=== PATIENT | female | born 1990 | race Two or more races ===

== ENCOUNTER 2018-07-27 19:10 | Emergency (ER) | payer OTHER ==
[~2018-07-27] VITALS: Ht 167.6 cm; Wt 149.7 kg
== END 2018-07-27 21:08 | disposition home or self-care (01) ==
LOC: ER 19:10
DX: B34.9 Viral infection, unspecified (principal)

== ENCOUNTER 2018-08-28 11:46 | Emergency (ER) | payer OTHER ==
[~2018-08-28] VITALS: Ht 167.6 cm; Wt 147.0 kg
== END 2018-08-28 14:11 | disposition home or self-care (01) ==
LOC: ER 11:46
DX: L23.6 Allergic contact dermatitis due to food in contact with the skin (principal)

== ENCOUNTER 2020-08-19 20:27 | Emergency (ER) | payer OTHER ==
[~2020-08-19] VITALS: Ht 167.6 cm; Wt 145.1 kg
== END 2020-08-19 23:54 | disposition home or self-care (01) ==
LOC: ER 20:27
DX: R11.11 Vomiting without nausea (principal); R42 Dizziness and giddiness; T50.Z95A Adverse effect of other vaccines and biological substances, initial encounter

== ENCOUNTER 2024-06-10 09:06 | Emergency (ER) | payer OTHER ==
[~2024-06-10] VITALS: Ht 167.6 cm; Wt 135.6 kg
[2024-06-10 11:02] LABS: HEMATOCRIT 32.5 % (36.0-45.00); HEMOGLOBIN 11.8 g/dL (12.0-15.00); MEAN CELL VOLUME 85.5 fL (80.00-100.00); MEAN CORPUSCULAR HEMOGLOBIN 31.1 pg (27.00-32.0); MEAN CORPUSCULAR HGB CONC 36.4 g/dl (32.0-36.0); PLATELET COUNT 257 K/uL (150-450); RED CELL DISTRIBUTION WIDTH 13.4 % (11.5-14.5)
[2024-06-10 11:25] LABS: URINE APPEARANCE Cloudy; URINE BILIRRUBIN Negative (NEGATIVE); URINE BLOOD Negative; URINE COLOR Yellow; URINE GLUCOSE Negative (NEGATIVE); URINE KETONE Negative (NEGATIVE); URINE LEUKOCYTE Negative; URINE NITRATE Positive; URINE PROTEIN Negative (NEGATIVE)
[2024-06-10 11:29] LABS: URINE EPITHELIAL CELLS 68.5 uL (0.0-38.8); URINE RBC 39.7 uL (0.0-20.8); URINE WBC 38.4 uL (0.0-23.2)
[2024-06-10 11:34] LABS: URINE BACTERIA > 9821.5 uL (0.0-1933)
== END 2024-06-10 14:25 | disposition home or self-care (01) ==
LOC: ER 09:08
PROVIDERS: Emergency Medicine
DX: N83.202 Unspecified ovarian cyst, left side (principal); N83.201 Unspecified ovarian cyst, right side; Z88.8 Allergy status to other drugs, medicaments and biological substances

== ENCOUNTER 2024-08-28 16:32 | Inpatient (IN) | payer OTHER ==
[~2024-08-28] VITALS: Ht 172.7 cm; Wt 95.3 kg
--- NOTE | 2024-08-28 17:35 | NUR ---
PTE ALERTA Y ORIENTADA X3 REFIERE DOLOR PELVICO DESDE HACE 5 ABDALLA. SE MIDEN S/V Y SE UBICA.
[2024-08-28 18:09] LABS: HEMATOCRIT 36.3 % (36.0-45.00); HEMOGLOBIN 12.2 g/dL (12.0-15.00); MEAN CELL VOLUME 87.2 fL (80.00-100.00); MEAN CORPUSCULAR HEMOGLOBIN 29.3 pg (27.00-32.0); MEAN CORPUSCULAR HGB CONC 33.6 g/dl (32.0-36.0); PLATELET COUNT 307 K/uL (150-450); RED BLOOD COUNT 4.16 M/uL (4.00-6.00); RED CELL DISTRIBUTION WIDTH 13.3 % (11.5-14.5)
--- NOTE | 2024-08-28 18:09 | NUR ---
PTE ALERTA Y ORINTADA X3 SE ORIENTA SOBRE TRATAMIENTO MEDICO Y SE SARAI MUSTRAS DE MARKOS BAJO MEDIDAS ASPTICAS ADECUDAS
[2024-08-28 18:23] LABS: PH,URINE 6.5 (5.0-8.0); URINE APPEARANCE Clear; URINE BILIRRUBIN Negative (NEGATIVE); URINE BLOOD Negative; URINE COLOR Yellow; URINE GLUCOSE Negative (NEGATIVE); URINE KETONE Negative (NEGATIVE); URINE LEUKOCYTE Trace; URINE NITRATE Negative; URINE PROTEIN Negative (NEGATIVE)
[2024-08-28 18:24] LABS: URINE BACTERIA 135.8 uL (0.0-1933); URINE EPITHELIAL CELLS 35.1 uL (0.0-38.8); URINE RBC 10.4 uL (0.0-20.8); URINE WBC 1.8 uL (0.0-23.2)
[2024-08-28 18:41] LABS: ALBUMIN 3.4 gm/dL (3.4-5.0); BILIRUBIN TOTAL 0.13 mg/dL (0.3-1.2); CALCIUM 9.3 mg/dL (8.5-10.1); CREATININE SERUM 0.63 mg/dL (0.55-1.02); GFR 108.17; GLOBULINA 4.1 G/DL (2.4-3.5); POTASSIUM 4.56 mEq/L (3.5-5.1); TOTAL PROTEIN 7.5 gm/dL (6.4-8.2)
[2024-08-28 18:53] LABS: URINE CAST 0.29 uL (0.0-1.40)
[2024-08-28] MEDS ORDERED: CEFTRIAXONE SODIUM 2,000 MG VIAL IV STA (23:05)
[2024-08-28] MEDS ORDERED: FAMOTIDINE/PF 20 MG in 0.9 % SODIUM CHLORIDE 8 ML IV PUSH SCH (23:28)
[2024-08-28] MEDS ORDERED: DOXYCYCLINE HYCLATE 100MG IV SCH (23:28)
[2024-08-28] MEDS ORDERED: MORPHINE SULFATE 4 MG/ML CARTRIDGE IV PRN (23:30)
[2024-08-28] MEDS ORDERED: ACETAMINOPHEN 500 MG GEL..CAP PO PRN (23:30)
[2024-08-28] MEDS ORDERED: 0.9 % SODIUM CHLORIDE 1,000 ML IV SCH (23:30)
[2024-08-28] MEDS ORDERED: KETOROLAC TROMETHAMINE 15 MG VIAL IU ONE (23:30)
[2024-08-29] MEDS ORDERED: FAMOTIDINE/PF 20 MG/2 ML VIAL ONE ×2 (00:53→05:07)
[2024-08-29] MEDS ORDERED: KETOROLAC TROMETHAMINE 30 MG VIAL ONE (00:53)
[2024-08-29] MEDS ORDERED: CEFTRIAXONE SODIUM 2,000 MG VIAL ONE (00:53)
[2024-08-29] MEDS ORDERED: METRONIDAZOLE/SODIUM CHLORIDE 100 ML IV SCH (01:00)
[2024-08-29 02:59] LABS: INR 0.96; PARTIAL THROMBOPLASTIN TIME 21.1 SECONDS (22.0-34.0); PROTHROMBIN TIME 10.5 SECONDS (9.0-11.5)
[2024-08-29 04:50] VITALS: BP 138/84; O2SAT 95
[2024-08-29] MEDS ORDERED: CEFTRIAXONE SODIUM 2,000 MG in 0.9 % SODIUM CHLORIDE 100 ML IV SCH (09:00)
[2024-08-29 10:01] VITALS: BP 100/53; O2SAT 98
[2024-08-29] MEDS ORDERED: DOXYCYCLINE HYCLATE 100MG IV ONE (15:51)
[2024-08-29 18:43] VITALS: BP 97/62
[2024-08-30 01:04] VITALS: BP 101/67; O2SAT 96
[2024-08-30 08:38] LABS: HEMOGLOBIN 11.8 g/dL (12.0-15.00); MEAN CELL VOLUME 88.1 fL (80.00-100.00); MEAN CORPUSCULAR HEMOGLOBIN 28.9 pg (27.00-32.0); MEAN CORPUSCULAR HGB CONC 32.8 g/dl (32.0-36.0); PLATELET COUNT 284 K/uL (150-450); RED BLOOD COUNT 4.09 M/uL (4.00-6.00); RED CELL DISTRIBUTION WIDTH 13.3 % (11.5-14.5)
[2024-08-30] MEDS ORDERED: METROnidazole 500 MG TABLET PO SCH (09:00)
[2024-08-30 09:32] LABS: ALBUMIN 2.8 gm/dL (3.4-5.0); BILIRUBIN TOTAL 0.35 mg/dL (0.3-1.2); CALCIUM 8.5 mg/dL (8.5-10.1); CREATININE SERUM 0.56 mg/dL (0.55-1.02); GFR 123.92; GLOBULINA 3.6 G/DL (2.4-3.5); POTASSIUM 4.47 mEq/L (3.5-5.1); TOTAL PROTEIN 6.4 gm/dL (6.4-8.2)
[2024-08-30 10:11] VITALS: BP 107/79; O2SAT 97
[2024-08-30] MEDS ORDERED: MINERAL OIL 30 ML BLIST.PACK PO STA (10:38)
[2024-08-30] MEDS ORDERED: POLYETHYLENE GLYCOL 3350 17 GM BLIST.PACK PO SCH (12:00)
[2024-08-30] MEDS ORDERED: FAMOTIDINE/PF 20 MG/2 ML VIAL ONE (16:13)
[2024-08-30] MEDS ORDERED: DOXYCYCLINE HYCLATE 100MG EACH PO SCH (17:00)
[2024-08-31 01:15] VITALS: BP 124/66
[2024-08-31 09:58] VITALS: BP 109/73; O2SAT 98
[2024-08-31 18:17] VITALS: BP 95/60; O2SAT 100
[2024-08-31] MEDS ORDERED: LACTULOSE 20 G/30 ML BLIST.PACK PO ONE (20:00)
[2024-08-31] MEDS ORDERED: LACTULOSE 20 G/30 ML BLIST.PACK ONE (22:15)
[2024-09-01 01:56] VITALS: BP 90/50
[2024-09-01 09:29] VITALS: BP 90/52; O2SAT 96
[2024-09-01] MEDS ORDERED: CEPHALEXIN750 MG PO (11:43)
[2024-09-01] MEDS ORDERED: Vibramycin PO (11:43)
[2024-09-01] MEDS ORDERED: METRONIDAZOLE500 MG PO (11:43)
== END 2024-09-01 12:37 | disposition home or self-care (01) | DRG 759 ==
LOC: ER 16:33 → MEDJ 23:32
PROVIDERS: General Practice; Internal Medicine; ADMIT Internal Medicine; ATTEND Internal Medicine
PROC: BU4CZZZ Ultrasonography of Uterus and Ovaries (ICD-10-PCS; principal; 2024-08-28)
PROC: BW21YZZ Computerized Tomography (CT Scan) of Abdomen and Pelvis using Other Contrast (ICD-10-PCS; 2024-08-28)
PROC: BW3GYZZ Magnetic Resonance Imaging (MRI) of Pelvic Region using Other Contrast (ICD-10-PCS; 2024-08-29)
DX: N73.8 Other specified female pelvic inflammatory diseases (principal); K59.00 Constipation, unspecified
CPT/HCPCS: 72196

== ENCOUNTER 2024-12-04 14:09 | Emergency (ER) | payer OTHER ==
[~2024-12-04 14:09] MED LIST: CEPHALEXIN750 MG PO; METRONIDAZOLE500 MG PO; Vibramycin PO
== END 2024-12-05 10:01 | disposition left against medical advice (07) ==
LOC: ER 15:23
DX: Z53.21 Procedure and treatment not carried out due to patient leaving prior to being seen by health care provider (principal)

== ENCOUNTER → 2025-01-10 | Emergency (ER) | payer OTHER ==
[~2025-01-10] VITALS: Ht 167.6 cm; Wt 117.9 kg
== END | disposition left against medical advice (07) ==
LOC: ER 00:27
DX: Z53.21 Procedure and treatment not carried out due to patient leaving prior to being seen by health care provider (principal)